=== PATIENT | male | born 1975 ===

== ENCOUNTER 2018-11-11 12:07 | Emergency (ER) | payer SELFPAY ==
[2018-11-11 12:12] VITALS: BP 159/96
--- NOTE | 2018-11-11 12:15 | Event Note ---
ED Screening Note Date of service: 11/11/18 Time: 12:11 ED Screening Note: This is a 43 y.o. M. that was sent from doctors office with a positive Quantiferon test yesterday. Patient states he had a cold last week but denies chest pain. This initial assessment/diagnostic orders/clinical plan/treatment(s) is/are subject to change based on patients health status, clinical progression and re- assessment by fellow clinical providers in the ED. Further treatment and workup at subsequent clinical providers discretion. Patient/guardian urged not to elope from the ED as their condition may be serious if not clinically assessed and managed. Initial orders include: CXR
--- NOTE | 2018-11-11 13:04 | Emergency Department Report ---
ED General Adult HPI - General Chief complaint: Medical Clearance Stated complaint: TB Time Seen by Provider: 11/11/18 12:10 Source: patient Mode of arrival: Ambulatory Limitations: Language Barrier - History of Present Illness Initial comments: 43-year-old male presents to the ED stating that he was positive for TB blood test had his doctor's office and was told to follow-up to be medically cleared for TB. Patient states that the Quantiferon test was positive. Patient has denies all symptoms such as fever, cough or chest pain - Related Data Allergies Allergy/AdvReac Type Severity Reaction Status Date / Time No Known Allergies Allergy Unverified 11/11/18 12:08 ED Review of Systems ROS: Stated complaint: TB Other details as noted in HPI Comment: All other systems reviewed and negative ED Past Medical Hx - Past Medical History Previous Medical History?: No - Surgical History Past Surgical History?: No - Social History Smoking Status: Never Smoker Substance Use Type: None ED Physical Exam - General Limitations: Language Barrier General appearance: alert, in no apparent distress - Head Head exam: Present: atraumatic, normocephalic - Eye Eye exam: Present: normal appearance - ENT ENT exam: Present: mucous membranes moist - Neck Neck exam: Present: normal inspection - Respiratory Respiratory exam: Present: normal lung sounds bilaterally. Absent: respiratory distress, wheezes, rales, rhonchi, chest wall tenderness - Cardiovascular Cardiovascular Exam: Present: regular rate, normal rhythm. Absent: systolic murmur, diastolic murmur, rubs, gallop - GI/Abdominal GI/Abdominal exam: Present: soft, normal bowel sounds - Rectal Rectal exam: Present: deferred - Extremities Exam Extremities exam: Present: normal inspection - Back Exam Back exam: Present: normal inspection - Neurological Exam Neurological exam: Present: alert, oriented X3 - Psychiatric Psychiatric exam: Present: normal affect, normal mood - Skin Skin exam: Present: warm, dry, intact, normal color. Absent: rash ED Course Vital Signs 11/11/18 12:10 Temperature 97.8 F Pulse Rate 77 Respiratory 18 Rate Blood Pressure 159/96 O2 Sat by Pulse 98 Oximetry ED Medical Decision Making - Radiology Data Radiology results: report reviewed, image reviewed positive qunitiferon test 11/10. COMPARISON: None. FINDINGS: Support devices: None. Heart: Within normal limits. Pulmonary vasculature: Normal. Lungs/pleura: No acute air space or interstitial disease. No pneumothorax. Additional findings: Low lung volumes. IMPRESSION: 1. No acute findings. Signer Name: Vinny Alanis MD Signed: 11/11/2018 1:09 PM Workstation Name: [id number] Transcribed By: REF Dictated By: VINNY ALANIS MD Electronically Authenticated By: VINNY ALANIS MD Signed Date/Time: 11/11/18 9379 - Medical Decision Making Patient presents here for clearance for positive QuantiFERON test Suspicious for acute findings. No lung masses Discussed the patient he they have been exposed to CVL with tramadol along received a vaccination that causes the positive. I discussed x-ray findings with the patient describes a patient of patient does not have active TB. I discussed with patient to follow up with his primary care physician. Patient is cleared to return to work signs vital signs are normal patient is in no acute distress Critical care attestation.: If time is entered above; I have spent that time in minutes in the direct care of this critically ill patient, excluding procedure time. 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 Take all your medications as you've been prescribed. If you have any worsening symptoms or develop new symptoms please return to ED immediately. Referrals: PRIMARY CAREMD [Primary Care Provider] - 3-5 Days [facility] [Outside] - 3-5 Days [facility] [Outside] - 3-5 Days Forms: Accompanied Note, Work/School Release Form(ED) Time of Disposition: 14:30
--- NOTE | 2018-11-11 13:13 | XRay Report ---
CHEST 2 VIEWS INDICATION: positive qunitiferon test 11/10. COMPARISON: None. FINDINGS: Support devices: None. Heart: Within normal limits. Pulmonary vasculature: Normal. Lungs/pleura: No acute air space or interstitial disease. No pneumothorax. Additional findings: Low lung volumes. IMPRESSION: 1. No acute findings. Signer Name: Vinny Mercedes MD Signed: 11/11/2018 1:09 PM Workstation Name: [id number]
== END 2018-11-11 14:40 | disposition home or self-care (01) ==
LOC: ED 12:07
DX: R76.11 Nonspecific reaction to tuberculin skin test without active tuberculosis (principal)
CPT/HCPCS: 71046; 99283